=== PATIENT | male | born 1945 | race Caucasian/White ===

== ENCOUNTER 2017-04-03 18:31 | Inpatient (IN) | payer MEDICARE, OTHER ==
[~2017-04-03] VITALS: Ht 167.6 cm; Wt 53.5 kg
[~2017-04-03 18:31] MED LIST: AMLODIPINE BESY10 MG PO; BENICAR5 MG PO; BUSPIRONE HCL15 MG PO; CEFTRIAXONE500 MG IV; DIOVAN40 MG PO; DIOVAN80 MG PO; ESCITALOPRAM OX20 MG PO; FISH OIL500 M1 PO; LEVOFLOXACIN500 MG PO; LORATADINE10 MG PO; MEN'S MULTI-VI1 EACH PO; PROAIR HFA INH8.5 GM; SPIRIVA18 MCG INH; SYMBICORT 16010.2 GM INH
[2017-04-03 19:04] LABS: BASOPHILS # (AUTO) 0.1 (0.0-0.1); BASOPHILS % 0.6 % (0.0-1.0); EOSINOPHILS % 0.3 % (0.0-6.0); HEMATOCRIT 37.6 % (38.2-49.6); HEMOGLOBIN 12.3 g/dL (14.0-18.0); LYMPHOCYTES # (AUTO) 1.4 (1.0-3.2); MEAN CORPUSCULAR HEMOGLOBIN 28.8 pg (28-32); MEAN CORPUSCULAR HGB CONC 32.7 g/dL (31-35); MEAN CORPUSCULAR VOLUME 88.1 fL (81-99); MONOCYTES % 22.9 % (4.4-11.3); NEUTROPHILS # (AUTO) 5.2 (2.1-6.9); NEUTROPHILS % 59.9 % (38.7-80.0); PLATELET COUNT 329 x10e3/uL (140-360); RED BLOOD COUNT 4.27 x10e6/uL (4.3-5.7); RED CELL DISTRIBUTION WIDTH 14.8 % (11.7-14.4)
[2017-04-03 19:15] LABS: INR 1.2; PROTHROMBIN TIME 14.3 seconds (11.9-14.5)
[2017-04-03 19:16] LABS: PARTIAL THROMBOPLASTIN TIME 29.2 seconds (23.8-35.5)
[2017-04-03 19:23] LABS: ALANINE AMINOTRANSFERASE 238 IU/L (0-55); ALBUMIN 3.2 g/dL (3.5-5.0); ALBUMIN/GLOBULIN RATIO 0.8 (0.8-2.0); ALKALINE PHOSPHATASE 176 IU/L (40-150); ANION GAP 16.9 mmol/L (8-16); BLOOD UREA NITROGEN 17 mg/dL (7-26); BUN/CREATININE RATIO 22 (6-25); CALCIUM 9.2 mg/dL (8.4-10.2); CARBON DIOXIDE 28 mmol/L (22-29); CHLORIDE 99 mmol/L (98-107); CREATINE KINASE 74 IU/L (30-200); CREATININE, SERUM 0.79 mg/dL (0.72-1.25); EST GLOMERULAR FILTRATION RATE > 60 ML/MIN (60-); GLUCOSE 114 mg/dL (74-118); POTASSIUM 3.9 mmol/L (3.5-5.1); SODIUM 140 mmol/L (136-145)
--- NOTE | 2017-04-03 19:27 | Diagnostic Imaging Report ---
Examination: Single AP view of the chest. COMPARISON: Portable chest 09/26/2013 INDICATION: Shortness of breath IMPRESSION: 1. Lines and Tubes: None 2. Lungs are hyperinflated, with increased lucency in the upper lungs, likely reflecting COPD. There is prominence of the interstitial markings, likely reflecting chronic interstitial changes. Questionable opacity in the right lateral mid lung versus soft tissue attenuation. No consolidation or pleural effusion. Chest PA and lateral may be obtained for further evaluation. 3. Cardiomediastinal silhouette is normal. Pulmonary vasculature is normal. 4. No acute bony abnormalities. Signed by: Dr. Farhat Robert M.D. on 04/03/2017 7:24 PM
[2017-04-03] MEDS ORDERED: LEVOTHYROXINE50 MCG PO (19:29)
[2017-04-03] MEDS ORDERED: LOSARTAN POTASS25 MG PO (19:29)
[2017-04-03] MEDS ORDERED: SPIRIVA18 MCG INH (19:29)
[2017-04-03] MEDS ORDERED: PROAIR HFA INH8.5 GM INH (19:29)
[2017-04-03] MEDS ORDERED: TRAZODONE HCL50 MG PO (19:29)
[2017-04-03] MEDS ORDERED: MIRAPEX1 MG PO (19:29)
[2017-04-03] MEDS ORDERED: ATORVASTATIN CA20 MG PO (19:29)
[2017-04-03] MEDS ORDERED: SYMBICORT 16010.2 GM INH (19:29)
[2017-04-03 19:30] LABS: B-TYPE NATRIURETIC PEPTIDE2 46.7 pg/mL (0-100)
[2017-04-03 21:07] LABS: HYPOCHROMASIA SLIGHT; LYMPHOCYTES % (MANUAL) 16 % (19-48); MONOCYTES % (MANUAL) 16 % (3.4-9.0); NEUTROPHILS % (MANUAL) 68 % (40-74); PLATELET ESTIMATE ADEQUATE; RBC MORPHOLOGY COMMENT NORMAL
[2017-04-04] VITALS (9 sets, daily range): BP systolic 118–157; BP diastolic 66–92
--- OUTSIDE RECORDS SUMMARY | 2017-04-04 01:38 | XMS REPORT | Summary of Care ---
Author Author Usha Brenner Organization Unknown Address [facility] Phone Unavailable Care Team Providers Care Wire Dropper Name Role Phone LINDSEY Aponte, MARITZA Unavailable Unavailable Usha Brenner Unavailable Unavailable PAULO TUCKER MD Unavailable Unavailable PAULO MCKEON M.D. Unavailable Unavailable LINDSEY KRISHNAMURTHY, MARITZA Whitney Unavailable Unavailable Unavailable Unavailable Functional Status Name Dates Details Functional status health issues are not documented Status: Name Dates Details Cognitive status health issues are not documented Status: Problems Name Dates Details Rotator cuff syndrome of right shoulder (726.10, M75.101) Status: Active Flu vaccine need (V04.81, Z23) Status: Active Depression screen (V79.0, Z13.89) Status: Active COPD exacerbation (491.21, J44.1) Status: Active Benign localized hyperplasia of prostate (600.20, N40.0) Status: Active Arteriosclerosis of coronary artery (414.00, I25.10) Status: Active 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, 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 Risk for falls (V15.88, Z91.81) Status: Active Allergic rhinitis, unspecified allergic rhinitis trigger, unspecified rhinitis seasonality Status: Active Need for hepatitis C screening test (V73.89, Z11.59) Status: Active Screening for AAA (abdominal aortic aneurysm) (V81.2, Z13.6) Status: Active 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, 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 Mixed hyperlipidemia (272.2, E78.2) Status: Active Hypoxia (799.02, R09.02) Status: Active Primary hypertension (401.9, I10) Status: Active Psychophysiological insomnia (307.42, F51.04) Status: Active Hypoparathyroidism (252.1, E20.9) Status: Active 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, 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 Chronic obstructive pulmonary disease (496, J44.9) Status: Active Chronic bronchitis (491.9, J42) Status: Active Abnormal EKG (794.31, R94.31) Status: Active Anemia due to other cause, not classified (285.8, D64.89) Status: Active PLMD (periodic limb movement disorder) (327.51, G47.61) Status: Active Medications Name Dates Details Albuterol Sulfate (2.5 MG/3ML) 0.083% Inhalation Nebulization Solution USE ONE VIAL VIA NEBULIZER EVERY 4-6 HOURS NEEDED Quantity: 4 PORTILLO N.P., MARITZA * Start : 26-Jul-2015 Active 60 x 3 ML Plas Cont Symbicort 160-4.5 MCG/ACT Inhalation Aerosol INHALE 2 PUFFS TWICE DAILY. RINSE MOUTH AFTER USE. * Quantity: 3 Refills: 3 LINDSEY N.P., MARITZA * Start : 28-Apr-2014 Active 10.2 GM Inhaler Escitalopram Oxalate 20 MG Oral Tablet TAKE 1 TABLET BY MOUTH EVERY DAY. * Quantity: 1 Refills: 3 LINDSEY N.P., MARITZA * Start : 15-Oct-2012 Active 90 Tablet Bottle Losartan Potassium 25 MG Oral Tablet TAKE 1 TABLET BY MOUTH EVERY DAY... needs office visit * Quantity: 30 Refills: 0 LINDSEY N.P., MARITZA * Start : 26-Feb-2017 Active AmLODIPine Besylate 5 MG Oral Tablet TAKE 1 TABLET BY MOUTH EVERY DAY, * Quantity: 1 Refills: 1 LINDSEY N.P., MARITZA * Start : 31-Jan-2015 Active 90 Tablet Bottle BusPIRone HCl - 15 MG Oral Tablet TAKE 1/2 TO 1 TABLET BY MOUTH TWICE TO THREE TIMES A DAY DIRECTED * Quantity: 270 Refills: 1 LINDSEY N.P. MARITZA * Start : 25-Dec-2015 Active TraZODone HCl - 50 MG Oral Tablet 0.5-1 tabs QHS PRN insomnia * Quantity: 60 Refills: 2 LINDSEY N.P., MARITZA * Start : 04-May-2014 Active Spiriva Respimat 2.5 MCG/ACT Inhalation Aerosol Solution INHALE 2 PUFFS ONCE DAILY * Quantity: 3 Refills: 3 LINDSEY N.P., MARITZA * Start : 14-Aug-2014 Active 4 GM Inhaler Atorvastatin Calcium 40 MG Oral Tablet TAKE 1 TABLET BY MOUTH EVERY DAY * Quantity: 90 Refills: 3 LINDSEY N.P., MARITZA * Start : 14-Aug-2014 Active Levothyroxine Sodium 50 MCG Oral Tablet TAKE 1 TABLET BY MOUTH EVERY DAY * Quantity: 90 Refills: 1 LINDSEY N.P., MARITZA * Start : 25-Dec-2016 Active ProAir HFA 108 (90 Base) MCG/ACT Inhalation Aerosol Solution INHALE 1 TO 2 PUFFS EVERY 4 TO 6 HOURS NEEDED. * Quantity: 3 Refills: 3 LINDSEY N.P., MARITZA * Start : 21-Oct-2014 End : 21-Aug-2017 Active 8.5 GM Inhaler BuPROPion HCl ER (XL) 300 MG Oral Tablet Extended Release 24 Hour TAKE 1 TABLET DAILY. * Quantity: 90 Refills: 3 LINDSYE N.P., MARITZA * Start : 19-Jun-2015 Active Benzonatate 100 MG Oral Capsule 1-2 caps PO Q8hrs PRN cough in add'n to mucinex DM OTC * Quantity: 90 Refills: 6 LINDSEY N.P., MARITZA * Start : 18-Apr-2016 Active Pramipexole Dihydrochloride 1 MG Oral Tablet TAKE 1 TABLET 3 TIMES DAILY FOR TREMOR AND SLEEP. * Quantity: 90 Refills: 2 LINDSEY N.P., MARITZA * Start : 02-Dec-2016 Active Allergies and Adverse Reactions Name Dates Details No Known Drug Allergies (Allergy) Status: Active Past Medical History Name Dates Details History of acute sinusitis (V12.69, Z87.09) Status: Resolved History of Encounter for mini-mental status examination Status: Resolved History of Morning stiffness of joints (719.50, M25.60) Status: Resolved History of Muscle cramps (729.82, R25.2) Status: Resolved History of Myalgia (729.1, M79.1) Status: Resolved History of Need for vaccination with 13-polyvalent pneumococcal conjugate vaccine (V03.82, Z23) Status: Resolved History of Nonspecific abnormal findings on radiological and examination of intrathoracic organs (793.2, R93.8) Status: Resolved History of Pneumonia, bacterial (482.9, J15.9) Status: Resolved History of Shortness of breath (786.05, R06.02) Status: Resolved History of Sprain or strain of other site of shoulder or upper arm (840.8, S46.919A) Status: Resolved History of Tachycardia (785.0, R00.0) Status: Resolved Procedures Procedure Dates Details History of Hand Surgery Completed History of Renal Lithotripsy Completed History of Kidney Surgery Completed Immunization Name Dates Details Fluzone INJ Lot #: [id number] on: 10-Dec-2012 Pneumococcal polysaccharide vaccine, 23 valent on: Feb-2013 Fluzone INJ Lot #: [id number] on: 12-Dec-2013 Fluvirin 0.5 ML Intramuscular Suspension Prefilled Syringe Lot #: [id number] on: 21-Oct-2014 Fluarix Quadrivalent 0.5 ML SUSP Lot #: [id number] on: 21-Oct-2014 Prevnar 13 Intramuscular Suspension Lot #: [id number] on: 11-Apr-2015 Prevnar 13 Intramuscular Suspension Lot #: [id number] on: 26-Apr-2015 Fluzone Quadrivalent 0.5 ML Intramuscular Suspension Lot #: [id number] on: 27-Nov-2015 Family History Name Dates Details Family history of Cancer Status: Active Name Dates Details Family history of Cancer Status: Active Family history of Hypertension (V17.49) Status: Active Family history of Type 2 Diabetes Mellitus Status: Active Social History Name Dates Details - Status: Name Dates Details Former smoker Vital Signs Date Test Result Details No Known Vitals to report Results Date Description Value Details Results not documented Plan of Care Name Dates Details Planned Observations Planned Goals not documented Planned Encounters Appointment; MARITZA PORTILLO NP On: 10-Apr-2017 15:00 Interventions Provided Discussion/Summary* Guideline Used: * Other: * Intended Caller Action: * Other: Dr. Jeong needs Doc to Doc * Additional Information: * Casandra from [facility]. is requesting to speak to Dr. Mckeon for a Doc to Doc with Dr. Jeong. Pt. is in the ER Bed #9. [place] text sent to Dr. Mckeon at [phone]. Instructions Name Dates Details Instructions not documented Encounters Appointment; MARITZA PORTILLO NP Encounter Diagnosis: Problem not documented On: 11-Apr-2015 14:00 Appointment; SILVIANO CUEVAS M.D. Encounter Diagnosis: Problem not documented On: 01-May-2015 15:30 Appointment; MARITZA PORTILLO NP Encounter Diagnosis: Problem not documented On: 19-Jun-2015 15:00 Appointment; MARITZA PORTILLO NP Encounter Diagnosis: Problem not documented On: 02-Oct-2015 16:15 Appointment; MARITZA PORTILLO NP Encounter Diagnosis: Problem not documented On: 27-Nov-2015 14:30 Appointment; MARITZA PORTILLO NP Encounter Diagnosis: Problem not documented On: 18-Apr-2016 13:15 Appointment; [facility] Encounter Diagnosis: Problem not documented On: 09-May-2016 8:00 Appointment; MARITZA PORTILLO NP Encounter Diagnosis: Problem not documented On: 26-Aug-2016 13:00
--- OUTSIDE RECORDS SUMMARY | 2017-04-04 01:38 | XMS REPORT ---
Author [facility] Address Unknown Phone Unavailable Care Team Providers Care Foil Stamp Operator Name Role Phone CARMEN MAYORGA Unavailable Unavailable Problems This patient has no known problems. Allergies, Adverse Reactions, Alerts This patient has no known allergies or adverse reactions. Medications This patient has no known medications. Results Test Description Test Time Test Comments Text Results Atomic Results Result Comments CHEST SINGLE (PORTABLE) [address] [address] Patient Name: XENA MENDEZ MR #: [id number] : 1945 Age/Sex: 72/M Req #: [id number] Adm Physician: Ordered by: CARMEN MAYORGA MD Report #: [id number] Location: ER Room/Bed: Procedure: [id number] DX/CHEST SINGLE (PORTABLE) Exam Date: 04/03/17 Exam Time: 1900 REPORT STATUS: Signed Examination: Single AP view of the chest. COMPARISON: Portable chest 09/26/2013 INDICATION: Shortness of breath IMPRESSION: 1. Lines and Tubes: None 2. Lungs are hyperinflated, with increased lucency in the upper lungs, likely reflecting COPD. There is prominence of the interstitial markings, likely reflecting chronic interstitial changes. Questionable opacity in the right lateral mid lung versus soft tissue attenuation. No consolidation or pleural effusion. Chest PA and lateral may be obtained for further evaluation. 3. Cardiomediastinal silhouette is normal. Pulmonary vasculature is normal. 4. No acute bony abnormalities. Signed by: Dr. Elizabeth Robert M.D. on 04/03/2017 7:24 PM Dictated By: ELIZABETH ROBERT MD 23 Transcribed By : GIO on 04/03/171923 COPY TO: CARMEN MAYORGA MD
[2017-04-04] MEDS: CEFTRIAXONE SOD 1 GM VIAL IV SCH ×3 (02:15→23:33)
[2017-04-04] MEDS: DOXYCYCLINE 100MG/NS 100ML 100 ML IV SCH ×3 (02:29→23:33)
[2017-04-04] MEDS: IPRATROPIUM BROMIDE 0.02% 2.5 ML NEB NEB SCH ×5 (03:00→18:55)
[2017-04-04] MEDS: ALBUTEROL SULF 0.083% NEB SOLN 3 ML NEB NEB SCH ×5 (03:00→18:55)
[2017-04-04 03:27] LABS: CREATINE KINASE MB 1.6 ng/mL (0-5.0)
[2017-04-04] MEDS ORDERED: METHYLPREDNISOLONE SOD SUCC 125 MG/2ML VIAL IV SCH (06:00)
[2017-04-04] MEDS ORDERED: SODIUM CHLORIDE 0.9% 250ML 250 ML ONE (12:11)
[2017-04-04 12:25] LABS: CREATINE KINASE 87 IU/L (30-200)
[2017-04-04] MEDS: METHYLPREDNISOLONE SOD SUCC 40 MG/ML VIAL IV SCH ×2 (14:33→21:34)
[2017-04-04] MEDS: BUDESONIDE/FORMOTEROL 160/4.5MCG INHALER INH SCH (18:55)
[2017-04-04] MEDS: PRAMIPEXOLE DIHYDROCHLORIDE 1 MG TAB PO SCH (21:34)
[2017-04-04] MEDS: ATORVASTATIN 20 MG TAB PO SCH (21:34)
[2017-04-04] MEDS: TRAZODONE HCL 50 MG TAB PO PRN (21:34)
[2017-04-04] MEDS: AMLODIPINE BESYLATE 5 MG TAB PO SCH (21:34)
[2017-04-05] VITALS (8 sets, daily range): BP systolic 101–137; BP diastolic 62–84
[2017-04-05] MEDS: IPRATROPIUM BROMIDE 0.02% 2.5 ML NEB NEB SCH ×6 (00:20→19:15)
[2017-04-05] MEDS: ALBUTEROL SULF 0.083% NEB SOLN 3 ML NEB NEB SCH ×6 (00:20→19:15)
[2017-04-05] MEDS ORDERED: BUDESONIDE/FORMOTEROL 160/4.5MCG INHALER INH SCH (06:00)
[2017-04-05] MEDS: LEVOTHYROXINE SODIUM 50 MCG TAB PO SCH (06:03)
[2017-04-05] MEDS: METHYLPREDNISOLONE SOD SUCC 40 MG/ML VIAL IV SCH ×3 (06:03→20:36)
[2017-04-05] MEDS: BUDESONIDE/FORMOTEROL 160/4.5MCG INHALER INH SCH ×2 (07:40→19:15)
[2017-04-05 08:54] LABS: BASOPHILS % 0.2 % (0.0-1.0); HEMATOCRIT 36.5 % (38.2-49.6); HEMOGLOBIN 12.1 g/dL (14.0-18.0); LYMPHOCYTES # (AUTO) 1.1 (1.0-3.2); LYMPHOCYTES % 9.4 % (18.0-39.1); MEAN CORPUSCULAR HEMOGLOBIN 28.7 pg (28-32); MEAN CORPUSCULAR HGB CONC 33.2 g/dL (31-35); MEAN CORPUSCULAR VOLUME 86.7 fL (81-99); MONOCYTES # (AUTO) 1.3 (0.2-0.8); MONOCYTES % 11.1 % (4.4-11.3); NEUTROPHILS # (AUTO) 8.9 (2.1-6.9); NEUTROPHILS % 78.9 % (38.7-80.0); PLATELET COUNT 359 x10e3/uL (140-360); RED BLOOD COUNT 4.21 x10e6/uL (4.3-5.7); RED CELL DISTRIBUTION WIDTH 14.8 % (11.7-14.4)
[2017-04-05] MEDS: VALSARTAN 80 MG TAB PO SCH (09:17)
[2017-04-05] MEDS: LORATADINE 10 MG TAB PO SCH (09:17)
[2017-04-05] MEDS: LOSARTAN POTASSIUM 25 MG TAB PO SCH (09:17)
[2017-04-05 09:18] LABS: ALANINE AMINOTRANSFERASE 158 IU/L (0-55); ALBUMIN/GLOBULIN RATIO 0.7 (0.8-2.0); ALKALINE PHOSPHATASE 147 IU/L (40-150); ANION GAP 17.8 mmol/L (8-16); BLOOD UREA NITROGEN 30 mg/dL (7-26); BUN/CREATININE RATIO 37 (6-25); CALCIUM 9.1 mg/dL (8.4-10.2); CARBON DIOXIDE 26 mmol/L (22-29); CHLORIDE 104 mmol/L (98-107); CREATININE, SERUM 0.82 mg/dL (0.72-1.25); EST GLOMERULAR FILTRATION RATE > 60 ML/MIN (60-); GLUCOSE 156 mg/dL (74-118); POTASSIUM 4.8 mmol/L (3.5-5.1); SODIUM 143 mmol/L (136-145)
[2017-04-05] MEDS: PRAMIPEXOLE DIHYDROCHLORIDE 1 MG TAB PO SCH ×3 (09:18→20:36)
[2017-04-05] MEDS: CEFTRIAXONE SOD 1 GM VIAL IV SCH ×2 (11:35→23:22)
[2017-04-05] MEDS: DOXYCYCLINE 100MG/NS 100ML 100 ML IV SCH (11:35)
--- NOTE | 2017-04-05 15:53 | History and Physical ---
ATTENDING PHYSICIAN: Dr. Mckeon. CHIEF COMPLAINT: Mr. Noe Hernández is a 72-year-old man known to me from past admissions who presents with a complaint of cough and greenish sputum. HISTORY OF PRESENT ILLNESS: He reports that his granddaughter visited last week who had a cough and then shortly afterwards he started getting worse. He uses home oxygen now. PAST MEDICAL HISTORY: Significant for COPD, previous admissions for pneumonia to [facility] in 2012 and 2013. He has been diagnosed with COPD and he is using his home oxygen now. MEDICATIONS: 1. Amlodipine 5 mg daily. 2. Doxycycline 100 mg b.i.d. 3. Loratadine 10 mg daily. 4. Levothyroxine 50 mcg daily. 5. Budesonide. PAST SURGICAL HISTORY: Patient's only surgery has been a crush injury to both thumbs. PERSONAL/SOCIAL HISTORY: Patient has not smoked since 2012. REVIEW OF SYSTEMS: CARDIAC: He is not known of any cardiac problems. No chest pain, palpitations, or edema. PHYSICAL EXAMINATION: GENERAL: A pleasant elderly white man who is alert, wearing nasal cannula oxygen, oriented. HEENT: Unremarkable. NECK: No jugular venous distention. CARDIOVASCULAR: Heart sounds S1 and S2 are equal. RESPIRATORY: Distant sounds. ABDOMEN: Protuberant. EXTREMITIES: No cyanosis, clubbing, or edema. DIAGNOSTIC AND LABORATORY DATA: Chest x-ray suggests hyperinflated lung marin with possible right mid-lung infiltrate. White count 8.7 and hemoglobin 12.3. BUN 17 and creatinine 0.7. ASSESSMENT: 1. Pneumonia. 2. Chronic obstructive pulmonary disease. PLAN: We will give broad-spectrum antibiotics and ask for pulmonary consultation. Further management based on clinical course. Job#: [id number] DIMITRY cc:Dr. Diaz
[2017-04-05] MEDS: DOXYCYCLINE HYCLATE TABLET 100 MG TAB PO SCH (17:38)
[2017-04-05] MEDS: AMLODIPINE BESYLATE 5 MG TAB PO SCH (20:36)
[2017-04-05] MEDS: ATORVASTATIN 20 MG TAB PO SCH (20:36)
[2017-04-05] MEDS: TRAZODONE HCL 50 MG TAB PO PRN (20:48)
--- NOTE | 2017-04-05 21:01 | Consultation ---
DATE OF CONSULTATION: PULMONARY CONSULTATION REASON FOR THE CONSULT: COPD exacerbation. CONSULTING PHYSICIAN: Dr. Mckeon CHIEF COMPLAINT: Shortness of breath. HPI: Mr. Hernández is a 72-year-old male with a history of almost 100- to [id number] smoking history, he quit 5 years ago. He presented with worsening shortness of breath going on for last 4 days despite using nebulizer treatment. He reports that he was bringing up green phlegm in copious amount. He denies any chest pain, nausea, vomiting, diarrhea, or focal weakness. REVIEW OF SYSTEMS: GENERAL: He was having fever. Denies any chills. HEAD: Denies any head trauma or head injury. ENT: Denies any earache, nosebleed, throat pain. CVS: Denies any chest pain. RESPIRATORY: Shortness of breath. GI: Denies any nausea, vomiting. Rest of the review of systems is negative except as in HPI. PAST MEDICAL HISTORY: Hypertension and COPD. FAMILY AND SOCIAL HISTORY: He lives by himself. 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 He is ex-smoker, quit 5 years ago, smoked for 54 years. Denies any alcohol use. PHYSICAL EXAMINATION: VITAL SIGNS: Temperature 97.4, pulse of 83, blood pressure 138/83, respiratory rate of 20 to 22 per minute, O2 sat 95% on 2 L. SKIN: Warm and dry. GENERAL APPEARANCE: He is an elderly male, in moderate respiratory distress. He is awake and alert, following commands, responding to questions appropriately. HEENT: Head atraumatic, normocephalic. Pupils are reactive. NECK: Supple. CHEST: Markedly reduced air entry. HEART: S1 and S2 audible. ABDOMEN: Soft, nontender, nondistended. NEUROLOGICAL: Awake and alert. Following commands. Responding to questions appropriately. No focal neurologic deficit. LABS: White count of 8.7, hemoglobin 12.3, platelets 329,000. Chemistry is within normal limits. AST 117, ALT 238, alk phos 176. Troponins are normal. Chest x-ray, I have reviewed the images, no clear-cut pneumonia, hyperinflation. ASSESSMENT: Mr. Hernández is a 72-year-old male presented with worsening shortness of breath. He is currently in chronic obstructive pulmonary disease exacerbation. CURRENT PROBLEMS: 1. Acute exacerbation of chronic obstructive pulmonary disease. 2. Ex-smoker. 3. Hypertension. 4. [id number] hypoxic respiratory failure. PLAN: 1. Agree with IV Solu-Medrol. 2. Continues Rocephin and doxycycline as ordered. Oxygen as needed. 3. Nebulizer treatment every 6 hours. Thank you for this consult. Will follow along with you. Job#: [id number]
[2017-04-06] VITALS (7 sets, daily range): BP systolic 128–167; BP diastolic 72–87
[2017-04-06] MEDS: IPRATROPIUM BROMIDE 0.02% 2.5 ML NEB NEB SCH ×6 (03:00→21:00)
[2017-04-06] MEDS: ALBUTEROL SULF 0.083% NEB SOLN 3 ML NEB NEB SCH ×6 (03:00→21:00)
[2017-04-06] MEDS: LEVOTHYROXINE SODIUM 50 MCG TAB PO SCH (06:18)
[2017-04-06] MEDS: METHYLPREDNISOLONE SOD SUCC 40 MG/ML VIAL IV SCH ×3 (06:18→21:39)
[2017-04-06] MEDS: BUDESONIDE/FORMOTEROL 160/4.5MCG INHALER INH SCH ×2 (08:13→21:00)
[2017-04-06] MEDS: LOSARTAN POTASSIUM 25 MG TAB PO SCH (09:30)
[2017-04-06] MEDS: CEFTRIAXONE SOD 1 GM VIAL IV SCH ×2 (09:30→23:25)
[2017-04-06] MEDS: VALSARTAN 80 MG TAB PO SCH (09:30)
[2017-04-06] MEDS: DOXYCYCLINE HYCLATE TABLET 100 MG TAB PO SCH ×2 (09:30→17:38)
[2017-04-06] MEDS: PRAMIPEXOLE DIHYDROCHLORIDE 1 MG TAB PO SCH ×3 (09:30→21:39)
[2017-04-06] MEDS: LORATADINE 10 MG TAB PO SCH (09:30)
[2017-04-06] MEDS ORDERED: ATORVASTATIN 40 MG TAB PO SCH (21:00)
[2017-04-06] MEDS: AMLODIPINE BESYLATE 5 MG TAB PO SCH (21:39)
[2017-04-07] VITALS: BP 152/97
[2017-04-07] MEDS: ALBUTEROL SULF 0.083% NEB SOLN 3 ML NEB NEB SCH ×4 (03:00→11:14)
[2017-04-07] MEDS: IPRATROPIUM BROMIDE 0.02% 2.5 ML NEB NEB SCH ×4 (03:00→11:14)
[2017-04-07] MEDS: TRAZODONE HCL 50 MG TAB PO PRN (03:15)
[2017-04-07 04:00] VITALS: BP 152/89
[2017-04-07] MEDS: METHYLPREDNISOLONE SOD SUCC 40 MG/ML VIAL IV SCH (06:00)
[2017-04-07] MEDS: LEVOTHYROXINE SODIUM 50 MCG TAB PO SCH (06:10)
[2017-04-07 07:02] LABS: BASOPHILS % 0.3 % (0.0-1.0); HEMATOCRIT 35.7 % (38.2-49.6); HEMOGLOBIN 11.6 g/dL (14.0-18.0); LYMPHOCYTES # (AUTO) 1.5 (1.0-3.2); LYMPHOCYTES % 9.6 % (18.0-39.1); MEAN CORPUSCULAR HEMOGLOBIN 28.9 pg (28-32); MEAN CORPUSCULAR HGB CONC 32.5 g/dL (31-35); MONOCYTES # (AUTO) 1.3 (0.2-0.8); MONOCYTES % 8.2 % (4.4-11.3); NEUTROPHILS # (AUTO) 11.9 (2.1-6.9); NEUTROPHILS % 78.5 % (38.7-80.0); PLATELET COUNT 393 x10e3/uL (140-360); RED BLOOD COUNT 4.01 x10e6/uL (4.3-5.7); RED CELL DISTRIBUTION WIDTH 14.7 % (11.7-14.4)
[2017-04-07 07:19] LABS: ALANINE AMINOTRANSFERASE 134 IU/L (0-55); ALBUMIN 2.8 g/dL (3.5-5.0); ALBUMIN/GLOBULIN RATIO 0.9 (0.8-2.0); ALKALINE PHOSPHATASE 131 IU/L (40-150); ANION GAP 12.5 mmol/L (8-16); BLOOD UREA NITROGEN 23 mg/dL (7-26); BUN/CREATININE RATIO 32 (6-25); CALCIUM 8.5 mg/dL (8.4-10.2); CARBON DIOXIDE 29 mmol/L (22-29); CHLORIDE 103 mmol/L (98-107); CREATININE, SERUM 0.72 mg/dL (0.72-1.25); EST GLOMERULAR FILTRATION RATE > 60 ML/MIN (60-); GLUCOSE 138 mg/dL (74-118); POTASSIUM 4.5 mmol/L (3.5-5.1); SODIUM 140 mmol/L (136-145)
[2017-04-07] MEDS: LORATADINE 10 MG TAB PO SCH (08:45)
[2017-04-07] MEDS: LOSARTAN POTASSIUM 25 MG TAB PO SCH (08:45)
[2017-04-07] MEDS: DOXYCYCLINE HYCLATE TABLET 100 MG TAB PO SCH (08:46)
[2017-04-07] MEDS: PRAMIPEXOLE DIHYDROCHLORIDE 1 MG TAB PO SCH (08:46)
[2017-04-07] MEDS: VALSARTAN 80 MG TAB PO SCH (08:46)
[2017-04-07 08:56] VITALS: BP 192/92
[2017-04-07] MEDS: BUDESONIDE/FORMOTEROL 160/4.5MCG INHALER INH SCH (09:34)
[2017-04-07] MEDS ORDERED: DOXYCYCLINE HY100 MG PO (10:03)
[2017-04-07] MEDS ORDERED: CEFUROXIME250 MG PO (10:03)
[2017-04-07 10:34] LABS: HYPOCHROMASIA SLIGHT; LYMPHOCYTES % (MANUAL) 8 % (19-48); METAMYELOCYTES % (MANUAL) 1 % (0-0); MONOCYTES % (MANUAL) 9 % (3.4-9.0); NEUTROPHILS % (MANUAL) 80 % (40-74); RBC MORPHOLOGY COMMENT NORMAL
[2017-04-07 10:35] LABS: ANISOCYTOSIS SLIGHT; PLATELET ESTIMATE ADEQUATE; PLATELET MORPHOLOGY COMMENT NORMAL
[2017-04-07] MEDS ORDERED: INFLUENZA VIRUS VAC SPLIT INJ 0.5 ML SYR IM ONE (10:50)
== END 2017-04-07 11:28 | disposition home or self-care (01) | DRG 193 ==
LOC: ER 18:31 → EDBEDREQ 04-04 01:01 → MED/SURG3 04-04 01:33
PROVIDERS: ADMIT Internal Medicine; ATTEND Internal Medicine
DX: J18.9 Pneumonia, unspecified organism (principal); J96.21 Acute and chronic respiratory failure with hypoxia; Z99.81 Dependence on supplemental oxygen; J44.0 Chronic obstructive pulmonary disease with (acute) lower respiratory infection; J44.1 Chronic obstructive pulmonary disease with (acute) exacerbation; Z87.891 Personal history of nicotine dependence
CPT/HCPCS: 36415; 71045; 80053; 82550; 82553; 82948; 83605; 83880; 84484; 85025; 85610; 85730; 87040; 87071; 87186; 87205; 87400; 93005; 94640; 96367; 99284; J0696; J2920; J2930; J7050